=== PATIENT | female | born 1985 | race African-American/Black ===

== ENCOUNTER 2017-03-02 23:59 | Emergency (ER) | payer OTHER ==
[~2017-03-02] VITALS: Ht 172.7 cm; Wt 72.6 kg
[~2017-03-02 23:59] MED LIST: ACETAMINOPHEN-1 EAC1; CITRATE OF MAG296 ML PO; FLEXERIL PO; KEFLEX500 MG PO; MACROBID 100 M100 M1 PO; MOBIC15 MG PO; NAPROSYN500 MG PO; PREDNISONE 20 M20 MG PO; PRENATAL PO; TINIDAZOLE500 MG PO; VENTOLIN HFA 1818 GM INH; ZOFRAN ODT4 MG PO
[2017-03-03] MEDS ORDERED: SENOKOT-S1 TA1 PO (00:19)
[2017-03-03] MEDS ORDERED: NORCO 5-325 TA1 EACH PO (00:19)
[2017-03-03] MEDS ORDERED: NOHOMEMEDICATIONS (00:22)
== END 2017-03-03 00:49 | disposition home or self-care (01) ==
LOC: ER 23:59
DX: T22.261A Burn of second degree of right scapular region, initial encounter (principal); F10.99 Alcohol use, unspecified with unspecified alcohol-induced disorder; X12.XXXA Contact with other hot fluids, initial encounter; Y93.89 Activity, other specified; Y92.89 Other specified places as the place of occurrence of the external cause; Y99.8 Other external cause status

== ENCOUNTER 2018-07-22 08:52 | Emergency (ER) | payer OTHER ==
[~2018-07-22] VITALS: Ht 172.7 cm; Wt 72.6 kg
--- NOTE | ~2018-07-22 | EKG ---
[address] [address] ELECTROCARDIOGRAM REPORT Name: MCCORMACKRICA Maira Room #: [facility]#: [id number] Admission: 07/22/18 Attend Phys: Discharge: 07/22/18 Date of : 83 Report #: [id number] THIS REPORT FOR: //name// [facility] ED Test Date: 2018-07-22 Test Time: 09:23:54 Pat Name: RICA MCCORMACK Department: Room: Gender: F [employer]: STEF : 1985 Requested By: Deanna Lara Order Number: [id number] MD: Blayne Grove Measurements Intervals Seanor Rate: 74 P: 48 VA: 170 QRS: 68 QRSD: 97 T: 44 QT: 370 QTc: 411 Interpretive Statements Sinus rhythm Compared to ECG 11/11/2013 19:17:05 Right ventricular hypertrophy now present Electronically Signed On 07-22-2018 15:40:17 [employer] OFFICER by Blayne Grove [email or web address] <ELECTRONICALLY SIGNED> By: Blayne Grove MD 07/22/18 1540 923 2 Blayne Grove MD /DANIA
[~2018-07-22 08:52] MED LIST changes: +NOHOMEMEDICATIONS; +NORCO 5-325 TA1 EACH PO; +SENOKOT-S1 TA1 PO
[2018-07-22 10:15] LABS: ABSOLUTE NEUTROPHILS 6.2 thou/uL (1.4-8.2); BASOPHILS 0.7 % (0.0-2.0); HEMATOCRIT 39.2 % (37.0-47.0); HEMOGLOBIN 13.3 gm/dL (12.0-15.0); LYMPHOCYTES 23.4 % (24.0-44.0); MCH 30.3 pg (26.0-34.0); MCV 88.9 fL (80.0-100.0); MONOCYTES 6.4 % (1.0-8.0); PLATELET COUNT 222 thou/uL (150-400); POLYS 68.5 % (36.0-66.0); RBC 4.41 mil/uL (4.20-5.00); RDW 13.2 % (10.5-14.5); WBC 9.1 thou/uL (4.0-11.0)
[2018-07-22 10:24] LABS: ANION GAP 6 mmol/L (7-16); BUN 15 mg/dL (7-18); CALCIUM 9.9 mg/dL (8.5-10.1); CHLORIDE 105 mmol/L (98-107); CO2 28 mmol/L (21-32); CREATININE 0.9 mg/dL (0.6-1.0); GLUCOSE 92 mg/dL (74-106); POTASSIUM 3.7 mmol/L (3.5-5.1); SODIUM 139 mmol/L (136-145)
[2018-07-22 10:33] LABS: TROPONIN-I <0.06 ng/mL (<0.06)
[2018-07-22] MEDS ORDERED: MOBIC15 MG PO ×2 (10:46→10:57)
[2018-07-22 11:14] VITALS: BP 109/57
== END 2018-07-22 11:15 | disposition home or self-care (01) ==
LOC: ER 08:52
PROVIDERS: Emergency Medicine
DX: R07.89 Other chest pain (principal)